=== PATIENT | male | born 1990 | race Caucasian/White ===

== ENCOUNTER 2017-09-06 18:08 | Emergency (ER) | payer MEDICAID ==
[2017-09-06] MEDS ORDERED: Iopamidol 755 MG/ML 500 ML Multipack Bottle IVPUSH STA (18:50)
[2017-09-06] MEDS ORDERED: Sodium Chloride 0.9% 1,000 ML IV ONE (18:56)
--- NOTE | 2017-09-06 18:56 | EDM.PDOC ---
ED HPI GENERAL MEDICAL PROBLEM - General Chief Complaint: General Stated Complaint: PT HAS LOWER BODY PAIN Time Seen by Provider: 09/06/17 18:35 Source of Information: Reports: Patient History Limitations: Reports: No Limitations - History of Present Illness INITIAL COMMENTS - FREE TEXT/NARRATIVE: HISTORY AND PHYSICAL: History of present illness: Patient is a 26-year-old male who presents to the emergency room with concerns of a prolapsed rectum. He states that he was wiping after having a bowel movement and noticed blood on the toilet paper. When he reached down he felt "something coming out of my butt". Denies any abdominal pain, nausea, vomiting or diarrhea. Denies any straining with his bowel movements. Denies any previous GI conditions such as Crohn's or diverticulitis. Review of systems: As per history of present illness and below otherwise all systems reviewed and negative. Past medical history: As per history of present illness and as reviewed below otherwise noncontributory. Surgical history: As per history of present illness and as reviewed below otherwise noncontributory. Social history: No reported history of drug or alcohol abuse. Family history: As per history of present illness and as reviewed below otherwise noncontributory. Physical exam: General: Well-developed and well nourished 36-year-old male. Alert and oriented. Nontoxic appearing. HEENT: Atraumatic, normocephalic, pupils reactive, negative for conjunctival pallor or scleral icterus, mucous membranes moist, throat clear, neck supple, nontender, trachea midline. Lungs: Clear to auscultation, breath sounds equal bilaterally, chest nontender. Heart: S1S2, regular, negative for clicks, rubs, or JVD. Abdomen: Soft, obese, nondistended, nontender. Negative for masses or hepatosplenomegaly. Negative for costovertebral tenderness. Pelvis: Stable nontender. Genitourinary: Deferred. Rectal: This was done with the farm implement engine mechanic at the bedside. Patient has good rectal tone and no lapse of the rectum when bearing down. He does have a hemorrhoid noted at the 6 o'clock position. No obvious bleeding noted. The Hemoccult was completed, and positive. Extremities: Atraumatic, normal variance of a amputated right upper extremity above the elbow. Moves all extremities per self without any difficulty. Neurovascular unremarkable. Neuro: Awake, alert, oriented. Cranial nerves II through XII unremarkable. Cerebellum unremarkable. Motor and sensory unremarkable throughout. Exam nonfocal. Patient denies any abdominal pain, declining any medication at this time. Routine labs and a CT will be done. Patient states he is concerned and would like a "full workup" done to make sure "nothing bad going on". Vital signs are stable. Diagnostics: CBC, CMP, CT abdomen and pelvis Therapeutics: [] Impression: Hemorrhoids Plan: 1. CT scan was unremarkable for any cause for blood in her stool. He do have a hemorrhoid which is likely the source of bleeding. As discussed previously we are unable to perform hemorrhoidectomies in the emergency department. He had been referred to surgery for further management. Anusol cream has been prescribed for U he can take this up to 2-4 times daily after a bowel movement. Apply externally. 2. Your liver enzymes were slightly elevated today, CT does show slightly enlarged liver size. Stop any alcohol use. Low-fat diet. Please follow-up with your primary caregiver in the next couple weeks to have this reevaluated. 3. Follow up with her primary caregiver in the next 1-2 days. Return to the ED as needed and as discussed. Definitive disposition and diagnosis as appropriate pending reevaluation and review of above. Rectal Pain Score (Numeric/FACES): 8 - Related Data Allergies Allergy/AdvReac Type Severity Reaction Status Date / Time amitriptyline Allergy Other Verified 09/06/17 18:33 Penicillins Allergy Anaphylactic Verified 09/06/17 18:33 Shock Home Meds: Home Meds . [No Known Home Meds] 09/06/17 [History] Past Medical History - Past Health History Medical/Surgical History: Denies Medical/Surgical History Social & Family History - Tobacco Use Smoking Status *Q: Never Smoker Second Hand Smoke Exposure: No - Caffeine Use Caffeine Use: Reports: Soda - Recreational Drug Use Recreational Drug Use: No ED ROS GENERAL - Review of Systems Review Of Systems: ROS reveals no pertinent complaints other than HPI. ED EXAM, GENERAL - Physical Exam Exam: See Below (See dictation) Course - Vital Signs Last Recorded V/S: Last Vital Signs Temp 98.8 F 09/06/17 18:41 Pulse 112 H 09/06/17 18:41 Resp 18 09/06/17 18:41 BP 187/102 H 09/06/17 18:41 Pulse Ox 99 09/06/17 18:41 - Orders/Labs/Meds Orders: Active Orders 24 hr Category Date Time Status Fecal Occult Blood Collection [RC] ASDIRECTED Care 09/06/17 18:47 Active Abdomen Pelvis w Cont [CT] Stat Exams 09/06/17 18:47 Taken Labs: Laboratory Tests 09/06/17 09/06/17 Range/Units 19:00 19:00 WBC 8.33 (4.0-11.0) K/uL RBC 4.89 (4.50-5.90) M/uL Hgb 15.7 (13.0-17.0) g/dL Hct 44.7 (38.0-50.0) % MCV 91.4 (80.0-98.0) fL MCH 32.1 H (27.0-32.0) pg MCHC 35.1 (31.0-37.0) g/dL RDW Std Deviation 42.2 (28.0-62.0) fl RDW Coeff of Baldo 13 (11.0-15.0) % Plt Count 280 (150-400) K/uL MPV 9.80 (7.40-12.00) fL Neut % (Auto) 52.7 (48.0-80.0) % Lymph % (Auto) 37.0 (16.0-40.0) % [place] % (Auto) 8.8 (0.0-15.0) % Eos % (Auto) 1.3 (0.0-7.0) % Baso % (Auto) 0.2 (0.0-1.5) % Neut # (Auto) 4.4 (1.4-5.7) K/uL Lymph # (Auto) 3.1 H (0.6-2.4) K/uL [place] # (Auto) 0.7 (0.0-0.8) K/uL Eos # (Auto) 0.1 (0.0-0.7) K/uL Baso # (Auto) 0.0 (0.0-0.1) K/uL Nucleated RBC % 0.0 /100WBC Nucleated RBCs # 0 K/uL Sodium 139 (136-146) mmol/L Potassium 3.9 (3.5-5.1) mmol/L Chloride 103 (98-110) mmol/L Carbon Dioxide 23 (21-31) mmol/L BUN 12 (6.0-23.0) mg/dL Creatinine 0.8 (0.6-1.5) mg/dL Est Cr Clr Drug Dosing 151.65 mL/min Estimated GFR (MDRD) > 60.0 ml/min Glucose 122 H (60-110) mg/dL Calcium 10.0 (8.8-10.8) mg/dL Total Bilirubin 0.4 (0.1-1.5) mg/dL AST 76 H (5-40) IU/L ALT 83 H (8-54) IU/L Alkaline Phosphatase 51 (40-150) Total Protein 8.9 H (6.0-8.0) g/dL Albumin 4.8 (3.5-5.0) g/dL Globulin 4.1 H (2.0-3.5) g/dL Albumin/Globulin Ratio 1.2 L (1.3-2.8) Meds: Medications Discontinued Medications Generic Name Dose Route Start Last Admin Trade Name Freq PRN Reason Stop Dose Admin Sodium Chloride 1,000 mls @ 999 mls/hr 09/06/17 18:56 09/06/17 19:10 Normal Saline IV 09/06/17 19:56 999 mls/hr STAT ONE Administration Departure - Departure Time of Disposition: 20:55 Disposition: Home, Self-Care 01 Clinical Impression: External hemorrhoid - Discharge Information Referrals: PCP,None [Primary Care Provider] - Forms: ED Department Discharge Additional Instructions: My general discharge The following information is given to patients seen in the emergency department who are being discharged to home. This information is to outline your options for follow-up care. We provide all patients seen in our emergency department with a follow-up referral. The need for follow-up, as well as the timing and circumstances, are variable depending upon the specifics of your emergency department visit. If you don't have a primary care physician on staff, we will provide you with a referral. We always advise you to contact your personal physician following an emergency department visit to inform them of the circumstance of the visit and for follow-up with them and/or the need for any referrals to a consulting specialist. The emergency department will also refer you to a specialist when appropriate. This referral assures that you have the opportunity for follow-up care with a specialist. All of these measure are taken in an effort to provide you with optimal care, which includes your follow-up. Under all circumstances we always encourage you to contact your private physician who remains a resource for coordinating your care. When calling for follow-up care, please make the office aware that this follow-up is from your recent emergency room visit. If for any reason you are refused follow-up, please contact the [facility] Emergency Department at and asked to speak to the emergency department charge nurse. [facility] Specialty Care - General Surgery Professional Building [address] [place] [address], [address] [place] [address] scan was unremarkable for any cause for blood in her stool. He do have a hemorrhoid which is likely the source of bleeding. As discussed previously we are unable to perform hemorrhoidectomies in the emergency department. He had been referred to surgery for further management. Anusol cream has been prescribed for U he can take this up to 2-4 times daily after a bowel movement. Apply externally. 2. Your liver enzymes were slightly elevated today, CT does show slightly enlarged liver size. Stop any alcohol use. Low-fat diet. Please follow-up with your primary caregiver in the next couple weeks to have this reevaluated. 3. Follow up with her primary caregiver in the next 1-2 days. Return to the ED as needed and as discussed. - My Orders Last 24 Hours: My Active Orders 09/06/17 18:47 Fecal Occult Blood Collection [RC] ASDIRECTED Abdomen Pelvis w Cont [CT] Stat - Assessment/Plan Last 24 Hours: My Active Orders 09/06/17 18:47 Fecal Occult Blood Collection [RC] ASDIRECTED Abdomen Pelvis w Cont [CT] Stat
[2017-09-06 19:42] LABS: CHLORIDE,CL 103 mmol/L (98-110); SODIUM,NA 139 mmol/L (136-146)
--- NOTE | 2017-09-07 13:11 | CT ---
EXAM DATE: 09/06/17 PATIENT'S AGE: 26 Patient: PAUL GORDON Facility: [place], [place] Site . Site : 1990 Study: CT Abdomen/Pelvis [id number]/[id number] 8:22:48 PM Ordering Physician: Doctor Scanlon Final Report: INDICATION: Blood in stools. TECHNIQUE: CT abdomen and pelvis acquired with i.v. 100 mL Isovue 370. Coronal and sagittal reformats were obtained. COMPARISON: None FINDINGS: Chute Operator CT images: Nonobstructive bowel gas pattern. Lower chest: Imaged lung bases are clear. No free air. Inferior heart normal in size. No pericardial or pleural effusion. Liver: Diffuse fatty infiltration of the liver. Spleen: Unremarkable. Pancreas: Unremarkable. Gallbladder and bile ducts: Unremarkable. Kidneys: Unremarkable. No kidney or ureteral stones and no hydronephrosis seen. Adrenal glands: Unremarkable. GI tract: Small hiatal hernia. No abnormal gastric wall thickening. Duodenum unremarkable, crossing midline. Loops of large and small bowel of normal caliber. No abnormal bowel wall thickening. Normal appendix. Vascular: Unremarkable. Lymph nodes: Unremarkable. Miscellaneous: Unremarkable. No pneumoperitoneum is seen. No significant ascites is noted. Pelvic Organs: Unremarkable. Bones: Unremarkable for age. IMPRESSION: 1. Enlarged liver size with underlying fatty infiltration. No focal liver lesion or abdominal ascites. Liver measures 22.3 centimeters in craniocaudal dimension. 2. Small hiatal hernia with otherwise unremarkable appearance to the GI tract. No abnormal bowel wall thickening or evidence of acute appendicitis. Terminal ileum unremarkable. Dictated by Reji Horvath MD @ 09/06/2017 8:39:23 PM Dictated by: Reji Horvath MD @ 09/06/2017 20:39:32 (Electronic Signature) Report Signed by Proxy. [facility] HOSPITALChristina
== END 2017-09-06 21:02 | disposition home or self-care (01) ==
LOC: MW.ED 18:08
DX: K64.4 Residual hemorrhoidal skin tags (principal); Z88.8 Allergy status to other drugs, medicaments and biological substances; Z88.0 Allergy status to penicillin
CPT/HCPCS: 36415; 74177; 80053; 85025; 96360; 96361; 99284; J7040; Q9967

== ENCOUNTER 2019-07-13 18:53 | Emergency (ER) | payer MEDICAID, SELFPAY ==
[2019-07-13] MEDS ORDERED: Ketorolac 30 MG/ML SDV IVPUSH ONE (19:18)
--- NOTE | 2019-07-13 19:19 | EDM.PDOC ---
ED HPI GENERAL MEDICAL PROBLEM - General Chief Complaint: Chest Pain Stated Complaint: CHEST PAIN Time Seen by Provider: 07/13/19 19:18 Source of Information: Reports: Patient History Limitations: Reports: No Limitations - History of Present Illness INITIAL COMMENTS - FREE TEXT/NARRATIVE: HISTORY AND PHYSICAL: History of present illness: Patient is a 28-year-old male presents to the ED with complaint of chest pain that began approximately 1 hour prior to arrival to the ED. Patient states the pain is midsternal and describes it has stabbing 7/10 pain. He states he does have some shortness of breath and has had a mild cough recently. He denies injury, abdominal pain, nausea, vomiting, fevers, chills. He states he is prediabetic and history of hypertension but not on medications. Review of systems: As per history of present illness and below otherwise all systems reviewed and negative. Past medical history: As per history of present illness and as reviewed below otherwise noncontributory. Surgical history: As per history of present illness and as reviewed below otherwise noncontributory. Social history: No reported history of drug or alcohol abuse. Family history: As per history of present illness and as reviewed below otherwise noncontributory. Physical exam: General: Patient sitting comfortably in no acute distress and nontoxic appearing HEENT: Atraumatic, normocephalic, pupils reactive, negative for conjunctival pallor or scleral icterus, mucous membranes moist, throat clear, neck supple, nontender, trachea midline. No meningeal signs. Lungs: Clear to auscultation, breath sounds equal bilaterally, tender to palpation along right side of sternum Heart: S1S2, regular, negative for clicks, rubs, or overt murmur. Abdomen: Soft, nondistended, nontender. Negative for masses or hepatosplenomegaly. Negative for costovertebral tenderness. No rigidity, rebound , guarding. Pelvis: Stable nontender. Genitourinary: Deferred. Rectal: Deferred. Extremities: Atraumatic, negative for cords or calf pain. Neurovascular unremarkable. Neuro: Awake, alert, oriented. Cranial nerves II through XII unremarkable. Cerebellum unremarkable. Motor and sensory unremarkable throughout. Exam nonfocal. Notes: Diagnostics: CBC, CMP, troponin, EKG, CXR Therapeutics: 30mg Toradol IV Prescriptions: Impression: Atypical chest pain Definitive disposition and diagnosis as appropriate pending reevaluation and review of above. Chest Pain Pain Score (Numeric/FACES): 8 - Related Data Allergies Allergy/AdvReac Type Severity Reaction Status Date / Time amitriptyline Allergy Other Verified 07/13/19 18:58 Penicillins Allergy Anaphylactic Verified 07/13/19 18:58 Shock Home Meds: Home Meds . [No Known Home Meds] 07/13/19 [History] Past Medical History - Past Health History Medical/Surgical History: Denies Medical/Surgical History Cardiovascular History: Reports: Hypertension Other Cardiovascular History: Pt. states he has "extremely" high blood pressure. Not treated with medications. 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 ED EXAM, GENERAL - Physical Exam Exam: See Below (see dictation) Course - Vital Signs Last Recorded V/S: Last Vital Signs Temp 98.1 F 07/13/19 18:59 Pulse 75 07/13/19 19:59 Resp 18 07/13/19 19:59 BP 114/72 07/13/19 19:59 Pulse Ox 98 07/13/19 19:59 - Orders/Labs/Meds Orders: Active Orders 24 hr Category Date Time Status EKG Documentation Completion [RC] STAT Care 07/13/19 18:55 Active Labs: Laboratory Tests 07/13/19 07/13/19 Range/Units 19:00 19:00 WBC 7.70 (4.0-11.0) K/uL RBC 5.00 (4.50-5.90) M/uL Hgb 15.7 (13.0-17.0) g/dL Hct 45.5 (38.0-50.0) % MCV 91.0 (80.0-98.0) fL MCH 31.4 (27.0-32.0) pg MCHC 34.5 (31.0-37.0) g/dL RDW Std Deviation 42.8 (28.0-62.0) fl RDW Coeff of Baldo 13 (11.0-15.0) % Plt Count 263 (150-400) K/uL MPV 9.70 (7.40-12.00) fL Neut % (Auto) 52.3 (48.0-80.0) % Lymph % (Auto) 34.7 (16.0-40.0) % [place] % (Auto) 10.9 (0.0-15.0) % Eos % (Auto) 1.8 (0.0-7.0) % Baso % (Auto) 0.3 (0.0-1.5) % Neut # (Auto) 4.0 (1.4-5.7) K/uL Lymph # (Auto) 2.7 H (0.6-2.4) K/uL [place] # (Auto) 0.8 (0.0-0.8) K/uL Eos # (Auto) 0.1 (0.0-0.7) K/uL Baso # (Auto) 0.0 (0.0-0.1) K/uL Nucleated RBC % 0.0 /100WBC Nucleated RBCs # 0 K/uL Sodium 141 (136-148) mmol/L Potassium 4.0 (3.5-5.1) mmol/L Chloride 105 (98-107) mmol/L Carbon Dioxide 23.6 (21.0-32.0) mmol/L BUN 10 (7.0-18.0) mg/dL Creatinine 0.9 (0.8-1.3) mg/dL Est Cr Clr Drug Dosing 128.43 mL/min Estimated GFR (MDRD) > 60.0 ml/min Glucose 110 H (74-106) mg/dL Calcium 9.1 (8.5-10.1) mg/dL Total Bilirubin 0.4 (0.2-1.0) mg/dL AST 66 H (15-37) IU/L ALT 84 H (14-63) IU/L Alkaline Phosphatase 49 (46-116) U/L Troponin I < 0.050 (0.000-0.056) ng/mL Total Protein 8.1 (6.4-8.2) g/dL Albumin 4.2 (3.4-5.0) g/dL Globulin 3.9 (2.6-4.0) g/dL Albumin/Globulin Ratio 1.1 (0.9-1.6) Meds: Medications Discontinued Medications Generic Name Dose Route Start Last Admin Trade Name Ernesto PRN Reason Stop Dose Admin Ketorolac Tromethamine 30 mg 07/13/19 19:18 07/13/19 19:32 Toradol IVPUSH 07/13/19 19:19 30 mg ONETIME ONE Administration Departure - Departure Time of Disposition: 20:07 Disposition: Home, Self-Care 01 Condition: Good Clinical Impression: Atypical chest pain Referrals: PCP,Unknown [Primary Care Provider] - Forms: ED Department Discharge Additional Instructions: The following information is given to patients seen in the emergency department who are being discharged to home. This information is to outline your options for follow-up care. We provide all patients seen in our emergency department with a follow-up referral. The need for follow-up, as well as the timing and circumstances, are variable depending upon the specifics of your emergency department visit. If you don't have a primary care physician on staff, we will provide you with a referral. We always advise you to contact your personal physician following an emergency department visit to inform them of the circumstance of the visit and for follow-up with them and/or the need for any referrals to a consulting specialist. The emergency department will also refer you to a specialist when appropriate. This referral assures that you have the opportunity for follow-up care with a specialist. All of these measure are taken in an effort to provide you with optimal care, which includes your follow-up. Under all circumstances we always encourage you to contact your private physician who remains a resource for coordinating your care. When calling for follow-up care, please make the office aware that this follow-up is from your recent emergency room visit. If for any reason you are refused follow-up, please contact the [facility] Emergency Department at and asked to speak to the emergency department charge nurse. [facility] Primary [facility] [address] [place] [id number] [facility] [address] [place] [id number] Alternate tylenol and ibuprofen as needed Follow up with primary care provider Return to ED as needed as discussed - My Orders Last 24 Hours: My Active Orders 07/13/19 18:55 EKG Documentation Completion [RC] STAT - Assessment/Plan Last 24 Hours: My Active Orders 07/13/19 18:55 EKG Documentation Completion [RC] STAT
--- NOTE | 2019-07-13 19:20 | CR ---
INDICATION: chest pain TECHNIQUE: Chest 2 views. COMPARISON: None. FINDINGS: Cardiovascular and mediastinum: Heart size and vasculature are normal in caliber and appearance. Mediastinum is within normal limits. Lungs and pleural spaces: Lungs are clear. No sign of infiltrate or mass. No sign of pleural effusion. No pneumothorax. Bones and soft tissues: No significant findings. IMPRESSION: Unremarkable chest. Dictated by: Siddhartha Eric MD @ 07/13/2019 19:18:49 (Electronically Signed)
[2019-07-13 20:01] LABS: BLOOD UREA NITROGEN,BUN 10 mg/dL (7.0-18.0); CARBON DIOXIDE,CO2 23.6 mmol/L (21.0-32.0); CHLORIDE,CL 105 mmol/L (98-107); GLUCOSE RANDOM 110 mg/dL (74-106); SODIUM,NA 141 mmol/L (136-148)
== END 2019-07-13 20:20 | disposition home or self-care (01) ==
LOC: MW.ED 18:53
DX: R07.89 Other chest pain (principal); I10 Essential (primary) hypertension; Z88.0 Allergy status to penicillin; Z88.8 Allergy status to other drugs, medicaments and biological substances
CPT/HCPCS: 36415; 71046; 80053; 84484; 85025; 93005; 96374; 99285; J1885

== ENCOUNTER 2019-08-05 23:03 | Emergency (ER) | payer MEDICAID ==
--- NOTE | 2019-08-05 23:26 | EDM.PDOC ---
ED HPI GENERAL MEDICAL PROBLEM - General Chief Complaint: Upper Extremity Injury/Pain Stated Complaint: RT SHOULDER HURTS Time Seen by Provider: 08/05/19 23:15 - History of Present Illness INITIAL COMMENTS - FREE TEXT/NARRATIVE: HISTORY AND PHYSICAL: History of present illness: The patient is a 28 y/o male who presents with complaints of pain to his right shoulder after he fell on it at 6 AM, approximately 18 hours ago. 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 He is not sure how he fell and it but he thinks he fell on the back side of it and he has had pain all day and has not taken anything for the pain. He says that every time he moves his shoulder causes more pain. He denies any other injuries and did not hit his head pass out or black out and has no head neck or back pain and no other extremity or trunk injuries. The patient says that his sensation is at its baseline in the shoulder stump. Review of systems: As per history of present illness and below otherwise all systems reviewed and negative. Past medical history: As per history of present illness and as reviewed below otherwise noncontributory. Surgical history: As per history of present illness and as reviewed below otherwise noncontributory. Social history: No reported history of drug or alcohol abuse. Family history: As per history of present illness and as reviewed below otherwise noncontributory. Physical exam: HEENT: Atraumatic, normocephalic, negative for conjunctival pallor or scleral icterus, mucous membranes moist, throat clear, neck supple, nontender, trachea midline. Lungs: Clear to auscultation, breath sounds equal bilaterally, chest nontender. Heart: S1S2, regular in rhythm no overt murmurs Abdomen: Soft, nondistended, nontender. Negative for masses or hepatosplenomegaly. Negative for costovertebral tenderness. Pelvis: Stable nontender. Genitourinary: Deferred. Rectal: Deferred. Extremities: Atraumatic, full range of motion of all extremities with the exception of the right shoulder where there is soft tissue swelling appreciated on the anterior aspect of the deltoid and tenderness with palpation in this area but it is difficult to assess if there is any anatomic malalignment as the patient has distorted anatomy at baseline. He has limited range of motion at the shoulder and the clavicle appears to be intact as does the distal humerus and the stump. The scapula and back area on the right are also intact without defects or deformities. The legs are negative for cords or calf pain. Neurovascular unremarkable. Neuro: Awake, alert, oriented. Cranial nerves II through XII unremarkable. Cerebellum unremarkable. Motor and sensory unremarkable throughout. Exam nonfocal. Diagnostics: XR right shoulder Therapeutics: Patient declines pain medication at this time Impression: Right shoulder contusion status post fall Definitive disposition and diagnosis as appropriate pending reevaluation and review of above. R shoulder Pain Score (Numeric/FACES): 8 - Related Data Allergies Allergy/AdvReac Type Severity Reaction Status Date / Time amitriptyline Allergy Other Verified 07/13/19 18:58 Penicillins Allergy Anaphylactic Verified 07/13/19 18:58 Shock Home Meds: Home Meds . [No Known Home Meds] 07/13/19 [History] Past Medical History - Past Health History Medical/Surgical History: Denies Medical/Surgical History Cardiovascular History: Reports: Hypertension Other Cardiovascular History: Pt. states he has "extremely" high blood pressure. Not treated with medications. - Infectious Disease History Infectious Disease History: Reports: None - Past Surgical History Musculoskeletal Surgical History: Reports: Amputation, Nerve Relocation Social & Family History - Caffeine Use Caffeine Use: Reports: None Review of Systems - Review of Systems Review Of Systems: Comprehensive ROS is negative, except as noted in HPI. ED EXAM, GENERAL - Physical Exam Exam: See Below (See dictation) Course - Vital Signs Last Recorded V/S: Last Vital Signs Temp 37.1 C 08/05/19 23:10 Pulse 100 08/05/19 23:10 Resp 18 08/05/19 23:10 BP 159/103 H 08/05/19 23:10 Pulse Ox 95 08/05/19 23:10 Departure - Departure Time of Disposition: 00:20 Disposition: Home, Self-Care 01 Condition: Good Clinical Impression: Contusion of shoulder, right Qualifiers: Encounter type: initial encounter Qualified Code(s): S40.011A - Contusion of right shoulder, initial encounter - Discharge Information Referrals: PCP,None [Primary Care Provider] - Forms: ED Department Discharge Additional Instructions: The following information is given to patients seen in the emergency department who are being discharged to home. This information is to outline your options for follow-up care. We provide all patients seen in our emergency department with a follow-up referral. The need for follow-up, as well as the timing and circumstances, are variable depending upon the specifics of your emergency department visit. If you don't have a primary care physician on staff, we will provide you with a referral. We always advise you to contact your personal physician following an emergency department visit to inform them of the circumstance of the visit and for follow-up with them and/or the need for any referrals to a consulting specialist. The emergency department will also refer you to a specialist when appropriate. This referral assures that you have the opportunity for followup care with a specialist. All of these measure are taken in an effort to provide you with optimal care, which includes your followup. Under all circumstances we always encourage you to contact your private physician who remains a resource for coordinating your care. When calling for followup care, please make the office aware that this follow-up is from your recent emergency room visit. If for any reason you are refused follow-up, please contact the [facility] emergency department at and ask to speak to the emergency department charge nurse. [facility] - [facility] Professional Building [address] [place] [address], [address] [place] [address] Ice to all areas of pain and swelling and use [id number] ibuprofen or Tylenol for pain management. Please connect with our orthopedic clinic using resources given to above for follow-up care and call that number to make the scheduled appointment. Return to ER as needed and as discussed Sepsis Event Note - Evaluation Sepsis Screening Result: No Definite Risk - Focused Exam Vital Signs: Vital Signs Temp Pulse Resp BP Pulse Ox 08/05/19 23:10 37.1 C 100 18 159/103 H 95 Date Exam was Performed: 08/06/19 Time Exam was Performed: 00:20
--- NOTE | 2019-08-06 00:18 | CR ---
INDICATION: Shoulder pain. COMPARISON: Chest radiograph from 07/13/2019. TECHNIQUE: The right shoulder was examined with AP internal and external rotation views for a total of two views. FINDINGS: There are changes of amputation the arm at the level of the distal humeral shaft. Multiple surgical clips are seen along the medial aspect of the right upper arm. The osseous structures are in anatomic alignment without fracture or dislocation. There is anatomic alignment of the humeral head and glenoid. Again seen are suture anchors in the right coracoid process. The visualized chest remains clear. IMPRESSION: No sign of fracture or dislocation. Again seen are suture anchors in the coracoid process. Status post amputation of the arm at the level of the distal humeral shaft. Dictated by Jatinder Chau MD @ Aug 06 2019 12:14AM Signed by Dr. Jatinder Chau @ Aug 06 2019 12:16AM
== END 2019-08-06 00:29 | disposition home or self-care (01) ==
LOC: MW.ED 23:03
DX: S40.011A Contusion of right shoulder, initial encounter (principal); I10 Essential (primary) hypertension; Z88.8 Allergy status to other drugs, medicaments and biological substances; Z88.0 Allergy status to penicillin; W19.XXXA Unspecified fall, initial encounter
CPT/HCPCS: 73030-26-RT; 73030-RT; 99283; 99283-25

== ENCOUNTER 2019-10-23 02:29 | Emergency (ER) | payer MEDICAID ==
--- NOTE | 2019-10-23 03:28 | CR ---
INDICATION: Lumbar spine pain following fall TECHNIQUE: Lumbar spine radiograph 3 views COMPARISON: None FINDINGS: Bone: No acute fractures or aggressive bone lesions are identified. Mild developmental wedging is noted at T12-L1. Alignment is normal. Disc: The disc spaces are unremarkable in appearance. The facet joints are unremarkable. Soft tissue: Unremarkable. No radiopaque foreign bodies are seen. IMPRESSION: 1. No acute osseous injuries or abnormalities are noted. Dictated by Chris Camacho MD @ 10/23/2019 3:27:17 AM Dictated by: Chris Camacho MD @ 10/23/2019 03:27:21 (Electronically Signed)
--- NOTE | 2019-10-23 03:30 | CT ---
INDICATION: Headache following fall TECHNIQUE: CT Head without i.v. contrast. COMPARISON: None FINDINGS: CSF space: The ventricles are normal for age. Brain: No evidence of mass, acute infarction or hemorrhage is seen. No mass-effect or midline shift is seen. The brain parenchyma is otherwise normal in appearance with preservation of the de oliveira-white matter junction. Calvarium: The visualized paranasal sinuses are well aerated. The mastoid air cells are clear. The visualized orbits are grossly unremarkable. The calvarium is unremarkable in appearance with no fractures identified. IMPRESSION: 1. No evidence of acute infarction, intracranial hemorrhage, or mass-effect seen. Please note that all CT scans at this facility use dose modulation, iterative reconstruction, and/or weight-based dosing when appropriate to reduce radiation dose to as low as reasonably achievable. Dictated by: Chris Camacho MD @ 10/23/2019 03:29:24 (Electronically Signed)
--- NOTE | 2019-10-23 03:35 | CT ---
INDICATION: Cervical spine pain following fall TECHNIQUE: CT cervical spine without i.v. contrast. Coronal and sagittal reformats were obtained. COMPARISON: None FINDINGS: Alignment: Unremarkable. Bone: No acute fractures or aggressive bone lesions are identified. Disc: The disc spaces are unremarkable in appearance. The facet joints are unremarkable. Soft tissue: The prevertebral soft tissues are unremarkable in appearance. The visualized lung apices and mediastinum are unremarkable. Mild bilateral jugular adenopathy is noted with lymph nodes measuring up to 11 mm on the right and 12 mm on the left. IMPRESSIONS: 1. No acute osseous injuries are identified. 2. Mild bilateral jugular adenopathy is noted with lymph nodes measuring up to 11 mm on the right and 12 mm on the left. Clinical follow-up is advised. Dictated by Chris Camacho MD @ 10/23/2019 3:33:01 AM Please note that all CT scans at this facility use dose modulation, iterative reconstruction, and/or weight-based dosing when appropriate to reduce radiation dose to as low as reasonably achievable. Dictated by: Chris Camacho MD @ 10/23/2019 03:33:07 (Electronically Signed)
--- NOTE | 2019-10-23 03:54 | EDM.PDOCBH ---
ED HPI GENERAL MEDICAL PROBLEM - General Chief Complaint: Drug or Alcohol Abuse Stated Complaint: AMB Time Seen by Provider: 10/23/19 02:40 Source of Information: Reports: Patient History Limitations: Reports: Intoxication - History of Present Illness INITIAL COMMENTS - FREE TEXT/NARRATIVE: CC alcohol intoxication HPI: This is a 29-year-old male found intoxicated in public. It is questionable whether the patient is fallen tonight. He is profoundly intoxicated PMHX/PSHX: Denies Social History: Negative for tobacco, positive for alcohol, negative for street drugs or marijuana Family history: Hypertension ROS: see chart PE: VS afebrile vital signs stable General: No apparent distress floridly intoxicated Head: Atraumatic normocephalic no lumps bumps or bruises Eyes: EOMI PERRLA scera white, conjuntiva pink Ears: TMs intact. No hemotympanum. No signs of infection or mastoid tenderness Nose: No epistaxis. Nares patent. No septal wall hematoma Throat: No pharyngeal erythema, exudate or tonsillar enlargement Neck: Supple. No cervical lymphadenopathy Chest wall: No point tenderness Heart: Regular rate and rhythm without murmur gallop or rub Lungs: Clear to auscultation and percussion without rale, rhonchi or wheeze. Abdomen: Soft nontender nondistended without guarding rigidity or rebound. Bowel sounds present. Neck: No spinal point tenderness full range of motion in all 6 directions Back: No spinal paraspinal or CVA tenderness Extremities: Full range of motion through out. No effusions right arm amputation at the mid humerus Skin: Warm, dry and intact. No rashes, erythema or warmth Neurologic: Cranial nerves II through XII intact bilaterally. No focal motor or sensory deficits noted MDM: Differential diagnosis: Intracranial injury cervical spine injury lumbar injury ED course: Patient complaining of low back pain. CT scan of the head negative CT scan of the cervical spine negative neurologically intact throughout. Lumbar spine x-rays negative. Patient awake and ambulatory and stable to go home with a sober ride Final Diagnosis: Alcohol intoxication, low back pain Disposition: Home Treatments TRANSFILL TECHNICIAN: Reports: Other (see below) Other Treatments TRANSFILL TECHNICIAN: c collar in place back Pain Score (Numeric/FACES): 10 - Related Data Allergies Allergy/AdvReac Type Severity Reaction Status Date / Time amitriptyline Allergy Other Verified 10/23/19 03:12 Penicillins Allergy Anaphylactic Verified 10/23/19 03:12 Shock Home Meds: Home Meds . [No Known Home Meds] 07/13/19 [History] Past Medical History - Past Health History Medical/Surgical History: Denies Medical/Surgical History Cardiovascular History: Reports: Hypertension Other Cardiovascular History: Pt. states he has "extremely" high blood pressure. Not treated with medications. - Infectious Disease History Infectious Disease History: Reports: None - Past Surgical History Musculoskeletal Surgical History: Reports: Amputation, Nerve Relocation Social & Family History - Tobacco Use Smoking Status *Q: Unknown Ever Smoked - Caffeine Use Caffeine Use: Reports: None ED ROS GENERAL - Review of Systems Review Of Systems: Comprehensive ROS is negative, except as noted in HPI. ED EXAM, BEHAVIORAL HEALTH - Physical Exam Exam: See Below Text/Narrative:: See my note COURSE, BEHAVIORAL HEALTH COMP - Course Vital Signs: Last Vital Signs Temp 36.6 C 10/23/19 02:36 Pulse 99 10/23/19 02:36 Resp 18 10/23/19 02:36 BP 141/96 H 10/23/19 02:36 Pulse Ox 96 10/23/19 02:36 Departure - Departure Time of Disposition: 03:53 Disposition: Home, Self-Care 01 Clinical Impression: Alcohol abuse - Discharge Information Instructions: Alcohol Use Disorder Additional Instructions: Apply warm compresses to your lower back. Seek treatment for your alcohol abuse. The following information is given to patients seen in the emergency department who are being discharged to home. This information is to outline your options for follow-up care. We provide all patients seen in our emergency department with a follow-up referral. The need for follow-up, as well as the timing and circumstances, are variable depending upon the specifics of your emergency department visit. If you don't have a primary care physician on staff, we will provide you with a referral. We always advise you to contact your personal physician following an emergency department visit to inform them of the circumstance of the visit and for follow-up with them and/or the need for any referrals to a consulting specialist. The emergency department will also refer you to a specialist when appropriate. This referral assures that you have the opportunity for follow-up care with a specialist. All of these measure are taken in an effort to provide you with optimal care, which includes your follow-up. Under all circumstances we always encourage you to contact your private physician who remains a resource for coordinating your care. When calling for follow-up care, please make the office aware that this follow-up is from your recent emergency room visit. If for any reason you are refused follow-up, please contact the [facility] Emergency Department at and asked to speak to the emergency department charge nurse. Sepsis Event Note - Evaluation Sepsis Screening Result: No Definite Risk - Focused Exam Vital Signs: Vital Signs Temp Pulse Resp BP Pulse Ox 10/23/19 02:36 36.6 C 99 18 141/96 H 96 Date Exam was Performed: 10/23/19 Time Exam was Performed: 03:51
== END 2019-10-23 04:28 | disposition home or self-care (01) ==
LOC: MW.ED 02:29
DX: F10.10 Alcohol abuse, uncomplicated (principal); Z88.0 Allergy status to penicillin; Z88.8 Allergy status to other drugs, medicaments and biological substances
CPT/HCPCS: 70450; 70450-26; 72100; 72100-26; 72125; 72125-26; 99284; 99284-25

== ENCOUNTER 2021-09-30 18:50 | Emergency (ER) | payer MEDICAID ==
[2021-09-30] MEDS ORDERED: Dexamethasone 10 MG/ML SDV IVPUSH ONE (19:14)
[2021-09-30] MEDS ORDERED: diphenhydrAMINE 50 MG/ML SDV IVPUSH ONE (19:14)
[2021-09-30 19:45] LABS: BLOOD UREA NITROGEN,BUN 7 mg/dL (7.0-18.0); CARBON DIOXIDE,CO2 26.9 mmol/L (21.0-32.0); CHLORIDE,CL 98 mmol/L (98-107); GLUCOSE RANDOM 164 mg/dL (74-106); POTASSIUM,K 3.6 mmol/L (3.5-5.1); SODIUM,NA 139 mmol/L (136-148)
[2021-09-30 20:52] LABS: CORONAVIRUS COVID-19 NAA NEGATIVE (NEGATIVE); INFLUENZA A NAA NEGATIVE (NEGATIVE); INFLUENZA B NAA NEGATIVE (NEGATIVE)
== END 2021-09-30 21:05 | disposition home or self-care (01) ==
LOC: MW.ED 18:50
DX: T78.40XA Allergy, unspecified, initial encounter (principal); R00.0 Tachycardia, unspecified; I10 Essential (primary) hypertension; Z88.1 Allergy status to other antibiotic agents; Z88.0 Allergy status to penicillin; Z20.822 Contact with and (suspected) exposure to COVID-19
CPT/HCPCS: 0240U; 36415; 71045; 80053; 84484; 85025; 87651; 93005; 96374; 96375; 99285; J1100; J1200

== ENCOUNTER 2021-11-24 09:00 | Emergency (ER) | payer MEDICAID, OTHER | END 2021-11-24 10:45 | disposition home or self-care (01) | LOC: MW.ED 09:00 | DX: S80.01XA Contusion of right knee, initial encounter (principal); S40.011A Contusion of right shoulder, initial encounter; I10 Essential (primary) hypertension; E66.9 Obesity, unspecified; Z68.31 Body mass index [BMI] 31.0-31.9, adult; Z79.899 Other long term (current) drug therapy; Z88.0 Allergy status to penicillin; W19.XXXA Unspecified fall, initial encounter | CPT/HCPCS: 73030-26-RT; 73030-RT; 73560-26-RT; 73560-RT; 99283; 99283-25 ==

== ENCOUNTER 2022-06-12 21:39 | Emergency (ER) | payer MEDICAID ==
[2022-06-12] MEDS ORDERED: Sodium Chloride 0.9% 10 ML Syringe FLUSH PRN (23:15)
[2022-06-12] MEDS ORDERED: Sodium Chloride 0.9% 2.5 ML Syringe FLUSH PRN (23:15)
[2022-06-12 23:47] LABS: CARBON DIOXIDE,CO2 26.2 mmol/L (21.0-32.0); POTASSIUM,K 3.6 mmol/L (3.5-5.1)
== END 2022-06-13 00:23 | disposition home or self-care (01) ==
LOC: MW.ED 21:39
DX: R07.9 Chest pain, unspecified (principal); R21 Rash and other nonspecific skin eruption; I10 Essential (primary) hypertension; E66.9 Obesity, unspecified; Z68.35 Body mass index [BMI] 35.0-35.9, adult; Z88.1 Allergy status to other antibiotic agents; Z88.0 Allergy status to penicillin; Z91.013 Allergy to seafood; Z79.899 Other long term (current) drug therapy
CPT/HCPCS: 36415; 71045; 71045-26; 80053; 84484; 85025; 85379; 93005; 93010; 99283; 99285

== ENCOUNTER 2023-06-10 17:25 | Emergency (ER) | payer SELFPAY ==
[2023-06-10 18:30] LABS: BASOPHILS ABSOLUTE AUTO 0.02 K/uL (0.00-0.20); BASOPHILS PERCENT AUTO 0.2 % (0.0-1.0); EOSINOPHILS ABSOLUTE AUTO 0.04 K/uL (0.00-0.45); EOSINOPHILS PERCENT AUTO 0.4 % (0.0-6.0); HEMOGLOBIN 14.3 g/dL (14.0-18.0); IMMATURE GRAN ABSOLUTE AUTO 0.02 K/uL (0.00-0.05); IMMATURE GRAN PERCENT AUTO 0.2 % (0.0-0.4); LYMPHOCYTES ABSOLUTE AUTO 1.57 K/uL (1.00-4.80); LYMPHOCYTES PERCENT AUTO 14.5 % (24.0-44.0); MEAN CORPUSCULAR HEMOGLOBIN 31.2 pg (28.0-32.0); MEAN CORPUSCULAR VOLUME 91.7 fL (83.0-99.0); MEAN PLATELET VOLUME 9.2 fL (9.4-12.4); MONOCYTES ABSOLUTE AUTO 1.17 K/uL (0.00-0.80); MONOCYTES PERCENT AUTO 10.8 % (0.0-8.0); NEUTROPHILS ABSOLUTE AUTO 8.03 K/uL (1.80-7.70); NEUTROPHILS PERCENT AUTO 73.9 % (41.0-71.0); PLATELET COUNT,PLT 247 K/uL (150-400); RED BLOOD CELL COUNT 4.58 M/uL (4.52-5.90); WHITE BLOOD CELL COUNT,WBC 10.85 K/uL (3.9-11.3)
[2023-06-10 18:46] LABS: ALANINE AMINOTRANSFERASE,ALT 17 IU/L (14-63); ALKALINE PHOSPHATASE 56 U/L (46-116); ASPARTATE AMNIOTRANSFERASE,AST 19 IU/L (15-37); BILIRUBIN TOTAL 0.6 mg/dL (0.2-1.0); BLOOD UREA NITROGEN,BUN 9 mg/dL (7.0-18.0); CALCIUM 9.7 mg/dL (8.5-10.1); CARBON DIOXIDE,CO2 31.3 mmol/L (21.0-32.0); CHLORIDE,CL 105 mmol/L (98-107); CREATININE 1.1 mg/dL (0.8-1.3); GLUCOSE RANDOM 100 mg/dL (74-106); POTASSIUM,K 4.1 mmol/L (3.5-5.1); SODIUM,NA 142 mmol/L (136-148)
[2023-06-10 18:47] LABS: ESTIMATED GFR 93 mL/min (>60)
[2023-06-10] MEDS ORDERED: Sodium Chloride 0.9% 1,000 ML IV STA (19:11)
[2023-06-10] MEDS ORDERED: Ketorolac 30 MG/ML SDV IVPUSH STA (19:11)
[2023-06-10] MEDS ORDERED: Clindamycin Phosphate in D5W 600 MG in Premix Bag 1 BAG IV STA ×2 (19:11)
[2023-06-10] MEDS ORDERED: Sodium Chloride 0.9% 2.5 ML Syringe FLUSH PRN (19:12)
[2023-06-10] MEDS ORDERED: Sodium Chloride 0.9% 10 ML Syringe FLUSH PRN (19:12)
== END 2023-06-10 22:10 | disposition home or self-care (01) ==
LOC: MW.ED 17:25
DX: L03.116 Cellulitis of left lower limb (principal); F17.210 Nicotine dependence, cigarettes, uncomplicated; Z88.0 Allergy status to penicillin; Z91.013 Allergy to seafood
CPT/HCPCS: 36415; 80053; 85025; 93971; 96365; 96375; 99284; J1885; J3490; J7030

== ENCOUNTER 2023-08-21 23:05 | Emergency (ER) | payer SELFPAY ==
[2023-08-21] MEDS ORDERED: Ibuprofen 600 MG Tab PO ONE (23:18)
[2023-08-21] MEDS ORDERED: Diphtheria,Pertussis(Acell),Tetanus Vaccine 0.5 ML Syringe IM ONE (23:18)
[2023-08-22] MEDS ORDERED: Bacitracin Oint 1 GM U/D Packet TOP STA (00:12)
[2023-08-22] MEDS ORDERED: Lidocaine 1% 5 ML VIAL INJECT ONE (00:33)
[2023-08-22] MEDS ORDERED: traMADol 50 MG Tab PO ONE (00:55)
[2023-08-22] MEDS ORDERED: Ibuprofen 600 MG Tab PO ONE (00:55)
[2023-08-22] MEDS ORDERED: Doxycycline 100 MG Cap PO ONE (00:55)
== END 2023-08-22 01:08 ==
LOC: MW.ED 23:05 → MERGE 23:05 → MW.ED 08-22 01:08
DX: S06.0X0A Concussion without loss of consciousness, initial encounter (principal); S01.02XA Laceration with foreign body of scalp, initial encounter; Z23 Encounter for immunization; Z88.0 Allergy status to penicillin; Z91.013 Allergy to seafood; W22.8XXA Striking against or struck by other objects, initial encounter
CPT/HCPCS: 12002; 70450; 71250; 72125; 90471; 90715; 99284; A9270; 99283; J3490

== ENCOUNTER 2024-02-23 21:23 | Emergency (ER) | payer SELFPAY ==
[2024-02-23] MEDS ORDERED: Acetaminophen 500 MG Tab PO ONE (22:13)
[2024-02-23] MEDS: Acetaminophen/oxyCODONE 325-5 MG Tab PO ONE (22:20)
[2024-02-23] MEDS: Ibuprofen 600 MG Tab PO ONE (22:22)
[2024-02-23] MEDS: Acetaminophen 325 MG Tab PO ONE (22:30)
== END 2024-02-23 23:12 | disposition home or self-care (01) ==
LOC: MW.ED 21:23
DX: K64.5 Perianal venous thrombosis (principal); I10 Essential (primary) hypertension; E66.9 Obesity, unspecified; Z79.899 Other long term (current) drug therapy; Z88.0 Allergy status to penicillin; Z88.8 Allergy status to other drugs, medicaments and biological substances; Z91.013 Allergy to seafood; Z75.8 Other problems related to medical facilities and other health care
CPT/HCPCS: 99283; A9270